=== PATIENT | male | born 1965 | race African-American/Black ===

== ENCOUNTER 2022-04-14 06:11 | Inpatient (IN) | payer OTHER ==
[2022-04-10 09:34] VITALS: BMI 31.9
[2022-04-14] MEDS ORDERED: VANCOMYCIN 1 GM in D5W (PRE-DOCKED) 1,000 MG/250 ML IVPB ONE ×2 (06:39→20:00)
[2022-04-14] MEDS ORDERED: CEFAZOLIN 2 GM in DEXTROSE 5%-WATER - 50 ML IVPB ONE (06:39)
[2022-04-14] MEDS ORDERED: PROPOFOL 60 ML ONE (07:00)
[2022-04-14] MEDS ORDERED: MIDAZOLAM HCL 2 MG/2 ML SINGLE DOSE VIAL ONE (07:00)
[2022-04-14] MEDS ORDERED: TRANEXAMIC ACID 1000 MG/10 ML VIAL ONE (07:04)
[2022-04-14] MEDS ORDERED: VANCOMYCIN 1,000 MG VIAL (RESTRICTED TO ID ONLY) ONE (07:04)
[2022-04-14] MEDS ORDERED: ROPIVACAINE HCL 0.5% 30ML VIAL ONE (07:04)
[2022-04-14] MEDS ORDERED: EPINEPHrine/PF 1 MG/1 ML (1:1,000) AMPULE ONE (07:04)
[2022-04-14] MEDS ORDERED: TRANEXAMIC ACID 1000 MG/10 ML VIAL IVPUSH ONE (07:30)
[2022-04-14] MEDS ORDERED: ROCURONIUM BROMIDE 50 MG/5 ML SYRINGE ONE ×2 (07:48)
[2022-04-14] MEDS ORDERED: NEOSTIGMINE METHYLSULFATE 0.5 MG/1 ML - 10 ML MDV ONE (10:17)
[2022-04-14] MEDS ORDERED: ACETAMINOPHEN 1000 MG/100 ML BAG IVPB ONE (11:01)
[2022-04-14] MEDS ORDERED: ONDANSETRON 4 MG TABLET PO PRN (11:06)
[2022-04-14] MEDS ORDERED: ACETAMINOPHEN INJECTION 100 ML IVPB ONE (11:07)
[2022-04-14] MEDS ORDERED: HYDROmorphone HCl 2 MG/ML VIAL IVPUSH PRN (11:09)
[2022-04-14] MEDS ORDERED: ONDANSETRON 4 MG/2 ML VIAL IVPUSH PRN (11:09)
[2022-04-14] MEDS ORDERED: SODIUM CHLORIDE 1,000 ML IV SCH (11:15)
[2022-04-14 11:28] VITALS: RESP 18
[2022-04-14] MEDS: LACTATED RINGERS SOLUTION 1,000 ML IV SCH (12:13)
[2022-04-14] MEDS: oxyCODONE HCL 5 MG TABLET PO PRN (17:44)
[2022-04-14] MEDS: CEFAZOLIN 1 GM in DEXTROSE 5%-WATER - 50 ML IVPB SCH (17:46)
[2022-04-14] MEDS: ACETAMINOPHEN 500 MG TABLET (FP) PO SCH (20:14)
[2022-04-14] MEDS: oxyCODONE HCL 10 MG SUSTAINED ACTING TABLET PO SCH (21:14)
[2022-04-14] MEDS ORDERED: SENNOSIDES/DOCUSATE COMBO (SENNA PLUS) TABLET (UD) PO SCH (22:00)
[2022-04-15] MEDS: CEFAZOLIN 1 GM in DEXTROSE 5%-WATER - 50 ML IVPB SCH (01:00)
[2022-04-15] MEDS: ACETAMINOPHEN 500 MG TABLET (FP) PO SCH ×2 (04:00→12:34)
[2022-04-15] MEDS: oxyCODONE HCL 5 MG TABLET PO PRN ×2 (05:41)
[2022-04-15] MEDS ORDERED: oxyCODONE HCL 5 MG TABLET PO PRN (06:32)
[2022-04-15 09:17] LABS: BASO % 0.2 % (0-2.0); EOS % 0.1 % (0-4.5); HEMOGLOBIN 13.1 GM/dL (11.7-16.9); LYMPH % 13.8 % (8-40); MCH 31.3 pg (25.7-33.7); MCHC 33.6 g/dl (32.0-35.9); MEAN CELL VOLUME 93.2 fl (80-96); MEAN PLT VOLUME 9.3 fl (7.5-11.1); MONO % 10.9 % (3.8-10.2); PLATELET COUNT 176 10^3/uL (134-434); RBC 4.18 M/mm3 (4.00-5.60); RDW 14.2 % (11.9-15.9); WHITE BLOOD COUNT 13.1 K/mm3 (4.0-10.0)
[2022-04-15] MEDS: oxyCODONE HCL 10 MG SUSTAINED ACTING TABLET PO SCH (09:19)
[2022-04-15] MEDS ORDERED: ASPIRIN 325 MG TABLET PO SCH (10:00)
[2022-04-15] MEDS ORDERED: LOSARTAN POTASSIUM 50 MG TABLET PO SCH (10:00)
[2022-04-15 11:07] VITALS: BP 152/92; PULSE 76; TEMP 98.8
[2022-04-15] MEDS: LACTATED RINGERS SOLUTION 1,000 ML IV SCH (12:37)
== END 2022-04-15 13:45 | disposition home or self-care (01) | DRG 483 ==
LOC: FM/S 06:11
PROVIDERS: ADMIT Internal Medicine
PROC: 0LS40ZZ Reposition Left Upper Arm Tendon, Open Approach (ICD-10-PCS; 2022-04-14)
PROC: 0RRK0JZ Replacement of Left Shoulder Joint with Synthetic Substitute, Open Approach (ICD-10-PCS; principal; 2022-04-14 08:18)
DX: M19.012 Primary osteoarthritis, left shoulder (principal); M75.22 Bicipital tendinitis, left shoulder; I10 Essential (primary) hypertension; E78.5 Hyperlipidemia, unspecified; E66.9 Obesity, unspecified; Z68.31 Body mass index [BMI] 31.0-31.9, adult; G89.29 Other chronic pain
CPT/HCPCS: 36415; 73030-TC-LT-FY; 85025; 88305-TC; 88311-TC; 94760; 97116-GP; 97162-GP; C1776